=== PATIENT | male | born 1945 | race American Indian/Alaskan Native ===

== ENCOUNTER 2017-03-12 07:34 | Outpatient (CLI) | payer OTHER ==
[~2017-03-12 07:34] MED LIST: GLIPIZIDE5 MG; METFORMIN HCL500 MG; SIMVASTATIN5 MG; VASOTEC2.5 MG
== END 2017-03-12 17:27 | disposition home or self-care (01) ==
LOC: RAD 07:34
DX: L03.031 Cellulitis of right toe (principal); M79.674 Pain in right toe(s)

== ENCOUNTER 2017-09-27 13:22 | Outpatient (CLI) | payer OTHER | END 2017-09-27 13:27 | disposition home or self-care (01) | LOC: RAD 13:22 | DX: J43.2 Centrilobular emphysema (principal); R05 Cough ==

== ENCOUNTER 2018-02-09 09:36 | Emergency (ER) | payer OTHER ==
[~2018-02-09] VITALS: Ht 170.2 cm; Wt 99.8 kg
[2018-02-09] MEDS ORDERED: VALACYCLOVIR1000 MG PO (10:35)
[2018-02-09] MEDS ORDERED: URIN D.S. TABL1 EACH PO (10:35)
== END 2018-02-09 10:48 | disposition home or self-care (01) ==
LOC: ER 09:36
DX: R30.0 Dysuria (principal); A60.02 Herpesviral infection of other male genital organs

== ENCOUNTER → 2018-03-31 | Outpatient (CLI) | payer OTHER ==
[~2018-03-31] MED LIST changes: +URIN D.S. TABL1 EACH PO; +VALACYCLOVIR1000 MG PO
== END | disposition home or self-care (01) ==
LOC: NUCLEAR 03-28 07:33
DX: J44.9 Chronic obstructive pulmonary disease, unspecified (principal); I10 Essential (primary) hypertension
CPT/HCPCS: 78472; 78496; A9560

== ENCOUNTER → 2018-09-07 | Outpatient (CLI) | payer OTHER | END | disposition home or self-care (01) | LOC: RAD 14:20 | DX: R10.2 Pelvic and perineal pain (principal); M79.642 Pain in left hand; M79.641 Pain in right hand ==

== ENCOUNTER → 2018-12-13 | Outpatient (CLI) | payer OTHER | END | disposition home or self-care (01) | LOC: RAD 14:52 | DX: M25.562 Pain in left knee (principal); M25.561 Pain in right knee ==

== ENCOUNTER 2019-07-21 14:47 | Outpatient (CLI) | payer OTHER | END 2019-07-21 14:58 | disposition home or self-care (01) | LOC: RAD 14:47 | PROVIDERS: ATTEND Specialist | DX: M17.12 Unilateral primary osteoarthritis, left knee (principal) ==

== ENCOUNTER 2020-10-16 13:31 | Outpatient (CLI) | payer OTHER | END 2020-10-16 13:42 | disposition home or self-care (01) | LOC: RAD 13:31 | DX: I10 Essential (primary) hypertension (principal) ==

== ENCOUNTER 2022-04-02 12:26 | Outpatient (CLI) | payer OTHER | END 2022-04-02 12:36 | disposition home or self-care (01) | LOC: NUCLEAR 12:26 | PROVIDERS: ATTEND Internal Medicine Cardiovascular Disease | DX: E11.9 Type 2 diabetes mellitus without complications (principal); J43.9 Emphysema, unspecified | CPT/HCPCS: 78472; A9560 ==

== ENCOUNTER 2022-07-20 07:27 | Outpatient (CLI) | payer OTHER | END 2022-07-20 07:35 | disposition home or self-care (01) | LOC: TOM 07:27 | PROVIDERS: ATTEND Surgery | DX: K62.5 Hemorrhage of anus and rectum (principal); K62.89 Other specified diseases of anus and rectum ==

== ENCOUNTER 2023-05-11 14:55 | Outpatient (CLI) | payer OTHER | END 2023-05-11 14:59 | disposition home or self-care (01) | LOC: RAD 14:55 | PROVIDERS: ATTEND Internal Medicine Cardiovascular Disease | DX: J40 Bronchitis, not specified as acute or chronic (principal) ==

== ENCOUNTER 2024-11-11 12:37 | Emergency (ER) | payer OTHER ==
[~2024-11-11] VITALS: Ht 167.6 cm; Wt 81.6 kg
[2024-11-11] MEDS ORDERED: UROXATRAL10 MG (13:25)
[2024-11-11] MEDS ORDERED: BUMETANIDE0.5 MG (13:25)
[2024-11-11] MEDS ORDERED: CARVEDILOL ER40 MG (13:26)
[2024-11-11] MEDS ORDERED: ATACAND16 MG (13:26)
[2024-11-11] MEDS ORDERED: FARXIGA10 MG (13:26)
[2024-11-11] MEDS ORDERED: ISOSORBIDE MONO60 MG (13:27)
[2024-11-11] MEDS ORDERED: LANTUS SOL100 UNIT/1 (13:27)
[2024-11-11] MEDS ORDERED: [UNRECOGNIZED DRUG - OTHER] (13:27)
[2024-11-11] MEDS ORDERED: ONDANSETRON HCL 4 MG in 0.9 % SODIUM CHLORIDE 50 ML IV ONE (14:30)
[2024-11-11] MEDS ORDERED: 0.9 % SODIUM CHLORIDE 1,000 ML IV SCH (14:30)
[2024-11-11] MEDS ORDERED: FAMOtidine 10 MG/ML (4ML VIAL) IV PUSH ONE (14:30)
[2024-11-11] MEDS ORDERED: ONDANSETRON HCL 2 MG/ML VIAL ONE (15:19)
[2024-11-11] MEDS ORDERED: FAMOTIDINE/PF 20 MG/2 ML VIAL ONE (15:19)
[2024-11-11 15:37] LABS: BASO % 0.0 % (0.1-1.2); EOS # 0.06 (0.04-0.54); EOS % 9.1 % (0.7-7.0); LYMPH # 0.19 (1.18-3.74); LYMPH % 28.8 % (19.3-53.1); MEAN PLATELET VOLUME 10.50 fl (9.4-12.4); MONO # 0.18 (0.24-0.82); NEUT # 0.19 (1.56-6.13); NEUT % 28.7 % (34.0-71.1); RED CELL DISTRIBUTION WIDTH 13.2 % (11.6-14.4)
[2024-11-11 16:03] LABS: INR 1.02
[2024-11-11 16:08] LABS: ALT/SGPT 16.0 U/L (12-78); AST/SGOT 11.0 U/L (15-37); BILIRUBIN TOTAL 0.45 mg/dL (0.3-1.2); BUN CREA RATIO 19.0 (7.0-25.0); CREATININE SERUM 0.99 mg/dL (0.70-1.30); GFR 72.55; GLOBULINA 4.0 G/DL (2.4-3.5); GLUCOSE FASTING 71.0 mg/dL (65-100); OSMOLALITY SERUM 278.0 MOSM/KG (275-295)
[2024-11-11 16:11] LABS: URINE APPEARANCE Clear; URINE BILIRRUBIN Negative (NEGATIVE); URINE BLOOD Negative; URINE COLOR Dark Yellow; URINE KETONE Trace (NEGATIVE); URINE LEUKOCYTE Negative; URINE NITRATE Negative; URINE PROTEIN 30 (NEGATIVE); URINE UROBILINOGEN 1.0 E.U./dl
[2024-11-11 16:15] LABS: URINE BACTERIA 171.6 uL (0.0-1933); URINE EPITHELIAL CELLS 2.9 uL (0.0-38.8); URINE RBC 5.5 uL (0.0-20.8); URINE WBC 2.7 uL (0.0-23.2)
[2024-11-11 16:25] LABS: MONO % 27.3 % (4.7-12.5)
[2024-11-11 16:27] LABS: LYMPHOCYTE MAN 30.0 %; NEUTROPHILS MAN 35.0 %
[2024-11-11 16:28] LABS: EOSINOPHIL MAN 8.0 %; MONOCYTE MAN 27.0 %
[2024-11-11 16:37] LABS: URINE CAST 0.00 uL (0.0-1.40); URINE GLUCOSE >=1000 MG/DL (NEGATIVE)
[2024-11-11] MEDS ORDERED: ANUSOL-HC30 G2 TOP (17:53)
[2024-11-11] MEDS ORDERED: PROTONIX40 M1 PO (17:53)
== END 2024-11-11 18:06 | disposition home or self-care (01) ==
LOC: ER 12:37
PROVIDERS: General Practice
DX: K64.9 Unspecified hemorrhoids (principal); K92.1 Melena
CPT/HCPCS: 36415; 74176; 96365; 96366; 99284; J2405; J3490; J7030